=== PATIENT | female | born 1960 | race American Indian/Alaskan Native ===

== ENCOUNTER 2020-08-14 11:13 | Emergency (ER) | payer BC, OTHER ==
--- NOTE | 2020-08-14 12:05 | Event Note ---
ED Screening Note Date of service: 08/14/20 Time: 12:04 ED Screening Note: Patient with complaints of feeling lightheaded and dizzy. Onset was last night, worse this morning She states that is not a spinning sensation. She states that it feels like her balance is off. She states is worse when she looks up and down or when she turns left and right. She states that she has been having left-sided jaw/left-sided neck pain for the past 2 weeks. She has seen 2 primary providers 1 told her it was related to TMJ. She has been taking Tylenol and ibuprofen which eases the pain but it seems to come back. She states that she still continues to have the left-sided jaw and -sided neck pain but not as bad. She denies any chest pain, shortness of breath, fever, chills, vision changes, speech changes, numbness, tingling or focal deficits Past medical history includes hypertension This initial assessment/diagnostic orders/clinical plan/treatment(s) is/are subject to change based on patients health status, clinical progression and re- assessment by fellow clinical providers in the ED. Further treatment and workup at subsequent clinical providers discretion. Patient/guardian urged not to elope from the ED as their condition may be serious if not clinically assessed and managed. Initial orders include: Lightheaded/dizzy order set
[2020-08-14 12:28] LABS: Basophils % (Auto) 0.3 % (0.0-1.8); Eosinophils # (Auto) 0.1 K/mm3 (0.0-0.4); Eosinophils % (Auto) 1.2 % (0.0-4.3); Hematocrit 38.2 % (30.3-42.9); Hemoglobin 13.4 gm/dl (10.1-14.3); Lymphocytes % (Auto) 18.5 % (13.4-35.0); Mean Corpuscular HGB Conc 35 % (30-34); Mean Corpuscular Volume 97 fl (79-97); Monocytes # (Auto) 0.2 K/mm3 (0.0-0.8); Monocytes % (Auto) 4.2 % (0.0-7.3); Platelet Count 157 K/mm3 (140-440); Red Blood Count 3.95 M/mm3 (3.65-5.03); Red Cell Distribution Width 13.1 % (13.2-15.2)
[2020-08-14 12:44] LABS: Alanine Aminotransferase 9 units/L (7-56); Albumin 4.3 g/dL (3.9-5); Blood Urea Nitrogen 14 mg/dL (7-17); Calcium 9.7 mg/dL (8.4-10.2); Hemolysis Index 5
--- NOTE | 2020-08-14 12:47 | Emergency Department Report ---
ED General Adult HPI - General Chief complaint: Dizziness Stated complaint: LIGHTHEADED/DIZZY Time Seen by Provider: 08/14/20 12:40 Source: patient Mode of arrival: Ambulatory Limitations: No Limitations - History of Present Illness Initial comments: 60-year-old female states that she has been feeling easily fatigued over the last few days. She feels that her "balance is somewhat off". She has not had vertigo per se. She does not complain of headache. However over the past 2 weeks she has had discomfort in her left TMJ area. She denies earache or toothache. She has had no URI symptoms. She denies any focal weakness or numbness. She denies any actual gait disturbance. She does state that she has had a low potassium in the past. She is not taking supplemental potassium with her HCTZ. She is also on losartan for her high blood pressure. Patient is status post a left mastectomy for breast cancer. She states that her last visit to the oncologist was in 2019. She states her last mammography test was negative. She does not report any recurrence or spread of cancer. -: Gradual, days(s), week(s) Location: left (Left TMJ) Radiation: non-radiation Quality: aching Consistency: intermittent Improves with: none Worsens with: none Associated Symptoms: denies other symptoms, weakness - Related Data Home Medications Medication Instructions Recorded Confirmed Last Taken Famotidine [Pepcid] 40 mg PO QHS 08/14/20 08/14/20 Unknown Losartan Potassium 100 mg PO QDAY 08/14/20 08/14/20 Unknown guaiFENesin/DEXTROMETHORPHAN 1 cap PO Q4HR PRN 08/14/20 08/14/20 Unknown [Coricidin Hbp Chest [place]ano-Cough] hydroCHLOROthiazide [HCTZ] 25 mg PO QDAY 08/14/20 08/14/20 Unknown Previous Rx's Medication Instructions Recorded Last Taken Type Potassium Chloride [K-Dur] 10 meq PO QDAY #34 tablet 08/14/20 Unknown Rx Allergies Allergy/AdvReac Type Severity Reaction Status Date / Time Sulfa (Sulfonamide Allergy Unknown Verified 08/14/20 13:04 Antibiotics) ED Review of Systems ROS: Stated complaint: LIGHTHEADED/DIZZY Other details as noted in HPI Constitutional: denies: chills, fever Eyes: denies: eye pain, eye discharge, vision change ENT: denies: ear pain, throat pain Respiratory: denies: cough, shortness of breath Cardiovascular: denies: chest pain, palpitations Endocrine: no symptoms reported Gastrointestinal: denies: abdominal pain, nausea, diarrhea Genitourinary: denies: urgency, dysuria, discharge Musculoskeletal: denies: back pain, arthralgia Skin: denies: rash, lesions Neurological: denies: headache, weakness, paresthesias Psychiatric: denies: anxiety, depression Hematological/Lymphatic: denies: easy bleeding, easy bruising ED Past Medical Hx - Past Medical History Hx Hypertension: Yes - Surgical History Hx Breast Surgery: Yes - Social History Substance Use Type: None - Medications Home Medications: Home Medications Medication Instructions Recorded Confirmed Last Taken Type Famotidine [Pepcid] 40 mg PO QHS 08/14/20 08/14/20 Unknown History Losartan Potassium 100 mg PO QDAY 08/14/20 08/14/20 Unknown History Potassium Chloride [K-Dur] 10 meq PO QDAY #34 tablet 08/14/20 Unknown Rx guaiFENesin/DEXTROMETHORPHAN 1 cap PO Q4HR PRN 08/14/20 08/14/20 Unknown History [Coricidin Hbp Chest [place]ano-Cough] hydroCHLOROthiazide [HCTZ] 25 mg PO QDAY 08/14/20 08/14/20 Unknown History ED Physical Exam - General Limitations: No Limitations General appearance: alert, in no apparent distress - Head Head exam: Present: atraumatic, normocephalic - Eye Eye exam: Present: normal appearance, PERRL, EOMI. Absent: scleral icterus Pupils: Present: normal accommodation - ENT ENT exam: Present: normal orophraynx, mucous membranes moist, other (The left TMJ has no obvious crepitus. There are no gross caries. There is no evidence of acute deformity. Bilaterally the TMJs are somewhat prominent.) - Neck Neck exam: Present: normal inspection, full ROM. Absent: tenderness, meningismus, lymphadenopathy, thyromegaly - Respiratory Respiratory exam: Present: normal lung sounds bilaterally. Absent: respiratory distress - Cardiovascular Cardiovascular Exam: Present: regular rate, normal rhythm. Absent: systolic murmur, diastolic murmur, rubs, gallop - GI/Abdominal GI/Abdominal exam: Present: soft, normal bowel sounds. Absent: distended, t enderness, guarding, rebound - Extremities Exam Extremities exam: Present: normal inspection - Back Exam Back exam: Present: normal inspection. Absent: muscle spasm, paraspinal tenderness, vertebral tenderness - Neurological Exam Neurological exam: Present: alert, oriented X3, CN II-XII intact, normal gait, other (Cerebellar testing was normal). Absent: motor sensory deficit - Psychiatric Psychiatric exam: Present: normal affect, normal mood - Skin Skin exam: Present: warm, dry, intact, normal color. Absent: rash ED Course Vital Signs 08/14/20 08/14/20 08/14/20 11:21 12:40 12:46 Temperature 98.4 F Pulse Rate 73 64 62 Respiratory 20 16 19 Rate Blood Pressure 152/88 160/74 O2 Sat by Pulse 100 100 100 Oximetry 08/14/20 13:00 Temperature Pulse Rate 62 Respiratory 15 Rate Blood Pressure 175/90 O2 Sat by Pulse 100 Oximetry ED Medical Decision Making - Lab Data Result diagrams: 08/14/20 12:09 08/14/20 12:09 Laboratory Results - last 24 hr 08/14/20 08/14/20 12:09 12:09 WBC 5.5 RBC 3.95 Hgb 13.4 Hct 38.2 MCV 97 MCH 34 H MCHC 35 H RDW 13.1 L Plt Count 157 Lymph % (Auto) 18.5 [place] % (Auto) 4.2 Eos % (Auto) 1.2 Baso % (Auto) 0.3 Lymph # (Auto) 1.0 L [place] # (Auto) 0.2 Eos # (Auto) 0.1 Baso # (Auto) 0.0 Seg Neutrophils % 75.8 H Seg Neutrophils # 4.2 Sodium 137 Potassium 3.0 L Chloride 100.1 Carbon Dioxide 29 Anion Gap 11 BUN 14 Glucose 103 H Calcium 9.7 Total Bilirubin 0.50 AST 13 ALT 9 Alkaline Phosphatase 70 Troponin T < 0.010 Total Protein 7.1 Albumin 4.3 Albumin/Globulin Ratio 1.5 Laboratory Results - last 24 hr 08/14/20 08/14/20 12:09 12:09 WBC 5.5 RBC 3.95 Hgb 13.4 Hct 38.2 MCV 97 MCH 34 H MCHC 35 H RDW 13.1 L Plt Count 157 Lymph % (Auto) 18.5 [place] % (Auto) 4.2 Eos % (Auto) 1.2 Baso % (Auto) 0.3 Lymph # (Auto) 1.0 L [place] # (Auto) 0.2 Eos # (Auto) 0.1 Baso # (Auto) 0.0 Seg Neutrophils % 75.8 H Seg Neutrophils # 4.2 Sodium 137 Potassium 3.0 L Chloride 100.1 Carbon Dioxide 29 Anion Gap 11 BUN 14 Creatinine 0.7 Estimated GFR > 60 BUN/Creatinine Ratio 20 Glucose 103 H Calcium 9.7 Total Bilirubin 0.50 AST 13 ALT 9 Alkaline Phosphatase 70 Troponin T < 0.010 Total Protein 7.1 Albumin 4.3 Albumin/Globulin Ratio 1.5 Magnesium 1.9 - Radiology Data Radiology results: report reviewed, image reviewed CT the head no intracranial abnormality per radiologist. Critical care attestation.: If time is entered above; I have spent that time in minutes in the direct care of this critically ill patient, excluding procedure time. ED Disposition Clinical Impression: Hypokalemia, Generalized weakness, Poorly-controlled hypertension Disposition: - TO HOME OR SELFCARE Is pt being admited?: No Does the pt Need Aspirin: No Condition: Stable Instructions: Hypokalemia Additional Instructions: Potassium as directed. Follow-up with your primary care physician. Return any acute change or problem. Prescriptions: Potassium Chloride [K-Dur] 10 meq PO QDAY #34 tablet Referrals: PRIMARY CARE, [Primary Care Provider] - 3-5 Days Time of Disposition: 14:51
[2020-08-14 12:53] LABS: BUN/Creatinine Ratio 20
--- NOTE | 2020-08-14 12:54 | XRay Report ---
XR chest routine 2V INDICATION / CLINICAL INFORMATION: Lightheadedness/Dizziness. COMPARISON: None available. FINDINGS: SUPPORT DEVICES: None. HEART /PULMONARY VASCULATURE: No significant abnormality. LUNGS / PLEURA: No significant pulmonary or pleural abnormality. No pneumothorax. ADDITIONAL FINDINGS: No significant additional findings. IMPRESSION: 1. No acute findings. Signer Name: Brijesh Gomez MD Signed: 08/14/2020 12:45 PM Workstation Name: [id number]
[2020-08-14] MEDS ORDERED: POTASSIUM CHLORIDE ER 20 MEQ TAB PO ONE (12:59)
--- NOTE | 2020-08-14 13:58 | Cat Scan Report ---
CT HEAD WITHOUT CONTRAST INDICATION / CLINICAL INFORMATION: Dizziness, h/o breast CA, L TMJ pain. TECHNIQUE: All CT scans at this location are performed using CT dose reduction for ALARA by means of automated e xposure control. COMPARISON: None available. FINDINGS: There is no acute intracranial hemorrhage. Ventricles are normal in size without midline shift or mas s effect. No extra-axial fluid collection is seen. Visualized paranasal sinuses are clear. Visualized orbits appear normal. Corpus callosum appears normal. ADDITIONAL FINDINGS: None. IMPRESSION: 1. No acute intracranial abnormality. Signer Name: Henri Love MD Signed: 08/14/2020 1:53 PM Workstation Name: [id number]
[2020-08-14 15:09] VITALS: BP 149/74
--- NOTE | 2020-08-15 14:41 | Electrocardiograph Report ---
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
== END 2020-08-14 15:09 | disposition home or self-care (01) ==
LOC: ED 11:13
DX: E87.6 Hypokalemia (principal); R53.1 Weakness; I10 Essential (primary) hypertension; Z98.890 Other specified postprocedural states; Z79.899 Other long term (current) drug therapy; Z88.2 Allergy status to sulfonamides
CPT/HCPCS: 36415; 70450; 71046; 80053; 84484; 85025; 93005